=== PATIENT | female | born 1960 | race Caucasian/White ===

== ENCOUNTER 2018-11-18 06:57 | Outpatient (CLI) | payer OTHER ==
[2018-11-18] VITALS (11 sets, daily range): BP systolic 95–142; BP diastolic 63–81
[~2018-11-18] VITALS: Ht 167.6 cm; Wt 83.9 kg
[2018-11-18] MEDS ORDERED: SIMV40TA3 PO (07:24)
[2018-11-18] MEDS ORDERED: OMEP20CA10 PO (07:24)
[2018-11-18] MEDS ORDERED: LISI1TAB5 PO (07:24)
[2018-11-18] MEDS ORDERED: FELO5TAB PO (07:24)
[2018-11-18] MEDS ORDERED: CITA10TA4 PO (07:24)
[2018-11-18] MEDS ORDERED: fentaNYL PF VIAL 100 MCG/2 ML VIAL ONE (07:39)
[2018-11-18] MEDS ORDERED: MIDAZOLAM HCL/PF 2 MG/2 ML VIAL. ONE (07:39)
[2018-11-18 07:44] LABS: BASO % 1 % (0-3); EOS % 0 % (0-3); HEMATOCRIT 40.8 % (36.0-47.0); HEMOGLOBIN 13.5 g/dL (12.0-15.5); LYMPH # 1.6 x10^3/uL (1.0-4.8); LYMPH % 30 % (24-48); MEAN CORPUSCULAR HEMOGLOBIN 29 pg (25-35); MEAN CORPUSCULAR HGB CONC 33 g/dL (31-37); MEAN CORPUSCULAR VOLUME 88 fL (79-100); MONO # 0.5 x10^3/uL (0.0-1.1); MONO % 9 % (0-9); NEUT # 3.3 x10^3uL (1.8-7.7); NEUT % 60 % (31-73); PLATELET COUNT 290 x10^3/uL (140-400); RED BLOOD COUNT 4.63 x10^6/uL (3.50-5.40); RED CELL DISTRIBUTION WIDTH 14.4 % (11.5-14.5); WHITE BLOOD COUNT 5.5 x10^3/uL (4.0-11.0)
[2018-11-18 07:54] LABS: PROTHROMBIN TIME PATIENT 12.5 SEC (11.7-14.0)
[2018-11-18] MEDS ORDERED: LIDOCAINE WITH 8.4% SOD BICARB 3 ML DISP.SYRIN. ONE (08:17)
[2018-11-18] MEDS ORDERED: LIDOCAINE WITH 8.4% SOD BICARB 3 ML DISP.SYRIN. IJ ONE (09:00)
[2018-11-18] MEDS ORDERED: MIDAZOLAM HCL/PF 2 MG/2 ML VIAL. IV ONE (09:00)
[2018-11-18] MEDS ORDERED: fentaNYL PF VIAL 100 MCG/2 ML VIAL IV ONE (09:00)
--- NOTE | 2018-11-18 10:15 | NUR ---
Discharge Pt alert and oriented x 3, gcs 15, no new c/o pain, able to tolerate PO, able to ambulate with steady gait. DC instructions provided and reviewed, questions answered. Dressing remains dry and intact. Pt escorted out per wheelchair, to drive. JOSELYN WILLOUGBHY Addendum: 11/18/18 at 1027 by IRAIS CANDELARIA RN Amended: Links added.
--- NOTE | 2018-11-18 10:49 | RAD ---
CT-guided bone marrow biopsy. 11/18/2018 10:45 AM Indication: LYTIC BONE LESION Discussion: The risks and benefits of the procedure, including but not limited to, bleeding and infection were discussed patient. Informed consent was obtained. The patient was brought to the CT scanner and placed in the left lateral decubitus position. A timeout procedure was performed. [employer] CT imaging of the pelvis demonstrated right amenable to bone marrow biopsy. The overlying soft tissues were prepped and draped using maximum sterile barrier technique. 1% lidocaine without epinephrine was administered for local anesthesia. Under intermittent CT guidance, an OncControl needle was advanced into the bone marrow of the left iliac crest. 2 Aspirates and 1 core biopsy samples were obtained. Samples were delivered to pathology was present at the time of procedure. The needle was removed and manual pressure held to achieve hemostasis. No immediate complications were identified. The procedure was performed under conscious sedation including continuous cardiopulmonary monitoring via dedicated sedation nurse. Sedation time: 20 minutes Impression: Successful CT-guided bone marrow biopsy of the left iliac crest . PQRS Compliance Statement: One or more of the following individualized dose reduction techniques were utilized for this examination: 1. Automated exposure control 2. Adjustment of the mA and/or kV according to patient size 3. Use of iterative reconstruction technique PQRS Compliance Statement: One or more of the following individualized dose reduction techniques were utilized for this examination: 1. Automated exposure control 2. Adjustment of the mA and/or kV according to patient size 3. Use of iterative reconstruction technique
--- NOTE | 2018-11-25 11:09 | PATHOLOGY ---
[facility] Accession Number: [id number] . 01 Material submitted: . PART A: BONE MARROW BIOPSY PART B: BM ASPIRATES AND CLOT PART C: BM ASP SMEARS PART D: [facility] BLOOD SMEARS . 01 Clinical history: . Lytic lesion: Rule out myeloma . 02 Diagnosis: Peripheral smear: - No diagnostic abnormalities. . Bone marrow, aspirate smears, clot section, and core biopsy: - Normocellular to focally mildly hypercellular marrow showing trilineage hematopoiesis, no significant dyspoiesis, and a moderate to marked plasmacytosis comprised of atypical plasma cells showing lambda light chain restriction - findings are compatible with a plasma cell neoplasm. - Absent iron stores. . (JPM:vikas; 11/24/2018) MBR/11/24/2018 . 02 Comment: The peripheral smear shows no cytopenias or morphologic abnormalities. The bone marrow is normocellular to focally hypercellular, and shows trilineage hematopoiesis, no significant dyspoiesis, and a moderate to marked plasmacytosis comprised of atypical plasma cells showing immunophenotypic evidence of lambda light chain restriction. Plasma cells overall comprise approximately 50% of nucleated marrow cells. The findings are compatible with a plasma cell neoplasm. Since there does appear to be evidence of end-organ damage in the form of lytic bone lesions, the findings are compatible with plasma cell myeloma. Correlate clinically. . Special stains performed: Iron stain on C1 and on B1. Reticulin stain on A1. Congo red stain on A1. Immunoperoxidase stain for CD138 on A1 and B1. In situ hybridization for kappa light chain on A1 and B1. In situ hybridization for lambda light chain on A1 and B1. . (MIGUEL ANGEL:vikas; 11/24/2018) . 02 Electronically signed: . Kevin Geiger MD, Pathologist NPI- [id number] . 01 Gross description: . A. The specimen is received in formalin, labeled "Fern Wang BM Bx', is a cylindrical segment of santiago bone measuring 1.0 cm in length with an average 0.2 cm diameter, admixed with dark brown clot and possible bone fragments. The specimen is entirely submitted in A1 after decalcification in Immunocal. . B. The specimen is received in formalin, labeled "Fern Wang BM Asp Clot", is a dark brown hemorrhagic clot measuring 2.5 x 2.2 x 0.2 cm in aggregate, entirely submitted in B1. (SWS; 11/18/2018) [facility] . 02 Microscopic: . Laboratory Data: The WBC count is 5.5 K/CMM, and the automated WBC differential reveals 60% neutrophils, 30% lymphs, 9% monos, and 1% baso. The RBC count is 4.63 M/CMM, hemoglobin 13.5 G/DL, hematocrit 40.8%, MCV 88 FL, MCH 29 PG, MCHC 33 G/DL, and the RDW is 14.4%. The platelet count is 290 K/CMM. Additional laboratory results and radiologic results are obtained from Dr. Sim' office. Serum protein electrophoresis shows no evidence of a monoclonal spike. The serum IgG is 664 MG/DL, IgA 54 MG/DL, and IgM 27 MG/DL. The serum free kappa light chain is 6.9 MG/L, lambda free light chain 634.4 MG/L, and the kappa/lambda free light chain ratio is 0.01. Twenty-four hour urine shows 4.76 G/DL of monoclonal lambda light chain. Skeletal survey shows a pathologic fracture of the proximal right humeral shaft, and additional lytic skull lesions as well as mottled lucencies/endosteal scalloping within both humeral shafts and right femoral shaft. . Peripheral Smear: The peripheral smear is reviewed. The WBC count is normal. The WBC differential reveals a predominance of segmented neutrophils, with smaller populations of lymphocytes and monocytes noted. Neutrophils do not show dysplastic changes. There is no significant neutrophilic left shift. There are no circulating blasts. There is no leukoerythroblastic reaction. The lymphocyte population consists predominantly of small lymphocytes. There are several reactive lymphocytes. There are no circulating plasma cells. Red blood cells appear normochromic and normocytic and show no significant anisopoikilocytosis. There is no evidence of red blood cell rouleaux. Platelets are normal in number and morphology with an occasional large platelet noted. . Aspirate Smears: Two Lizarraga's-stained and one iron-stained aspirate smears are examined. The smears contain multiple marrow particles. There are foci of moderate to marked plasmacytosis within the smears which show up to 50%-70% plasma cells. Other areas show a smaller proportion of plasma cells. The plasma cells are atypical. The plasma cells are enlarged and possess enlarged eccentric nuclei containing nucleoli. Occasional binucleated and multinucleated plasma cells are noted. Erythroid maturation appears normoblastic. There are no megaloblastic or overt dysplastic changes. Granulopoiesis qualitatively appears normal. There is no significant left shift or dysplastic changes. There is no increase of blasts. Megakaryocytes appear adequate and are of variable ploidy. There is no apparent increase of lymphocytes. There are no other cells foreign to the marrow. The iron stain shows absent iron stores. No ringed sideroblasts are identified. . Bone Marrow Biopsy and Clot Section: Sections of the bone marrow biopsy reveal segments of bone marrow showing focal aspiration artifact. Preserved areas of the biopsy range between 30% and 60-70% cellular. The clot section contains multiple marrow particles, the majority of which show a similar range of cellularity. There are focal solid large clusters and interstitial infiltrates of atypical plasma cells. These plasma cells are enlarged and possess enlarged eccentric nuclei containing distinct nucleoli. The remaining areas of the marrow show a smaller proportion of plasma cells and a good admixture of erythroid and granulocytic precursors, which are present in varying stages of maturation, along with adequate numbers of megakaryocytes. There is no increase of blasts. There are no abnormal lymphoid aggregates, granulomas, or cells foreign to the marrow. To confirm flow cytometric findings and characterize the target cells in a tissue architectural context, immunoperoxidase stain for CD138 and in situ hybridization for kappa and lambda light chains are obtained and yield the following results: . CD138 (A1): Plasma cells positive present in large solid clusters and having an interstitial distribution; plasma cells comprise approximately 40-50% of nucleated marrow cells. [place] and lambda BRUNO (A1): Plasma cells show lambda light chain restriction. CD138 (B1): Plasma cells positive present in large solid clusters and having an interstitial distribution; plasma cells comprise overall approximately 50-60% of nucleated marrow cells. [place] and lambda BRUNO: Plasma cells show lambda light chain restriction. . A Congo red stain for amyloid obtained on the biopsy shows no amyloid deposition. An iron stain obtained on the clot section shows absent iron stores. No ringed sideroblasts are identified. A reticulin stain obtained on the biopsy shows a focal mild increase of reticulin fibers within solid areas of plasma cell infiltration. . Special Studies: Bone marrow submitted for flow cytometric analysis, has a viability of 99.1%. Granulocytes comprise 77.6% of total cells which show phenotypic evidence of maturation. Monocytes comprise 4.0% of total cells and co-express CD14 and CD64. CD45 dim, CD34 positive cells comprise 0.7% of total cells. Lymphocytes comprise 14.9% of total cells. T-cells comprise 81% of lymphoid cells and show a CD4/CD8 ratio of 2.1. NK cells comprise 12% of lymphoid cells. Mature B-cells comprise 5% of lymphoid cells and are polyclonal with a kappa:lambda ratio of 1.0. Plasma cells comprise 3.4% of total cells. Plasma cells show cytoplasmic lambda light chain restriction and are CD38 (bright), CD56 (variable), CD138 (bright), and CD117 positive. These plasma cells are CD19, CD45, and CD20 negative. . Bone marrow submitted for FISH analysis using a plasma cell myeloma probe panel reveals several abnormalities including 13q deletion/monosomy 13, and gains in chromosome 5/5p and chromosome 9/9q. . Iron stain on C1 and on B1. Reticulin stain on A1. Congo red stain on A1. Immunoperoxidase stain for CD138 on A1 and B1. In situ hybridization for kappa light chain on A1 and B1. In situ hybridization for lambda light chain on A1 and B1. . (JPM:vikas/mmkwesi; 11/24/2018) . 02 Pathologist provided ICD-10: D47.Z9, D72.822 . 02 CPT . 072264, 655665, 949232, 289585, 134134, 055416, 383196, 340521, 168291, [id number], [id number], [id number] Specimen Comment: A courtesy copy of this report has been sent to Specimen Comment: [phone]. Specimen Comment: Report sent to / DR SIM Performed at: [address] [place] [address] [address], [place], [place] [id number] MD Luciano Rangel MD Phone: [phone] Performed at: [address] [id number] MD Kevin Geiger MD Phone: [phone]
[2018-12-12] MEDS ORDERED: CITA20TA6 PO (10:16)
[2018-12-12] MEDS ORDERED: TRAM50TA PO (10:16)
== END 2018-11-18 10:15 | disposition home or self-care (01) ==
LOC: INTRAD 06:57
PROVIDERS: ATTEND Internal Medicine Hematology & Oncology
DX: D70.4 Cyclic neutropenia (principal); Z79.01 Long term (current) use of anticoagulants
CPT/HCPCS: 36415; 38222; 77012; 85025; 85610; 88184; 88185; 88237; 88305; 88311; 88313; 88342; 88364; 88365; 88374; 99152; J2250; J3010; 99153

== ENCOUNTER → 2019-08-02 | Outpatient (CLI) | payer OTHER ==
[2018-11-18 09:55] VITALS: BP 110/65
[~2019-08-02] MED LIST: CITA10TA4 PO; CITA20TA6 PO; FELO5TAB4 PO; LISI1TAB19 PO; OMEP-229 PO; SIMV40TA18 PO; TRAM50TA PO
--- NOTE | 2019-08-02 17:19 | RAD ---
Indications: Left leg pain. History of multiple myeloma 2 view left hip study: No acute fracture or dislocation is evident. There is degenerative cystic changes of the left femoral head in association with joint space narrowing and moderate spurring. Otherwise no lytic process is seen. Soft tissue calcification is seen within the subcutaneous soft tissues of the upper left lateral thigh which may be related to an injection granuloma. 2V left femur study: No acute fracture or lytic process is seen. 2 view left tibia and fibula: No acute fracture or lytic process is seen. IMPRESSION: No lytic process. Moderate primary degenerative osteoarthritis of the left hip joint. Electronically signed by: Sebas Fitch MD (08/02/2019 5:16 PM) [id number]
== END | disposition home or self-care (01) ==
LOC: RAD 11:06
PROVIDERS: ATTEND Internal Medicine Hematology & Oncology
DX: M16.12 Unilateral primary osteoarthritis, left hip (principal); M25.852 Other specified joint disorders, left hip; Z85.820 Personal history of malignant melanoma of skin
CPT/HCPCS: 73502; 73552; 73590